=== PATIENT | female | born 1995 | race African-American/Black ===

== ENCOUNTER 2016-04-10 20:20 | Inpatient (IN) ==
[2016-04-10] MEDS ORDERED: Penicillin G Potassium 5,000,000 UNIT in D5% in Water (Mini-Bag+) 100 ML IVPB ONE (20:23)
[2016-04-10] MEDS ORDERED: Ringers Solution, Lactated 1,000 ML IVC SCH (20:30)
[2016-04-10] MEDS ORDERED: Ondansetron 4 MG/2 ML VIAL IVP PRN (20:31)
--- NOTE | 2016-04-10 20:44 | OB/GYN History & Physical ---
Date of Encounter: 04/10/16 Time of Encounter: 20:44 Assessment and Plan (1) Spontaneous onset of labor Current visit: Yes Status: Acute Patient presents reporting contractions with no fluid loss. TOCO shows contractions of 4-6min. Exam shows 5cm dilations with 90% effacement, baby is posterior. Will continue to monitor progression of labor. (2) History of group B Streptococcus (GBS) infection Current visit: Yes Status: Acute Patient has history of GBS+ on previous . Unknown GBS status on this status. Will start penicillin for antibiotic coverage. (3) Late care Current visit: Yes Status: Acute Patient has been follow at [facility] but reports late care. Will request records from [facility]. Unknown serology and GBS status with this . Will send labs. History of Present Illness Chief complaint: 38 weeks gestation with contractions and cramping HPI: Ms. Hanna is a 21 year old female at 38 week who presents today with contractions and cramping starting around 7am this morning. Patient reports that her contractions are currently 3-5min apart. She reports that she passed her mucus plug this morning but denies any fluid loss. Patient continues to report good movement. She reports that she has been "sick" for the last week with cough, congestion, runny nose, SOB, nausea/vomiting and diarrhea. She denies vaginal bleeding, headache, vision changes, changes in bladder function. Patient reports that she was getting pre- care at [facility] but she didn't start seeing them until later in the . She denies any complications or problems with blood sugar or blood pressure. Unknown serologies or GBS. On chart review, patient's previous delivery in May 2015 shows a report of GBS+, history of maternal chlamydia infection and report of meconium staining. Past Med Surg Social Fam HX - Past Medical History Medical history: no medical history Psychiatric history: no psych history - Past Surgical History Surgical History: other - Social History Smoking Status: Current some day smoker Smokeless Tobacco Status: No Alcohol use: none Drug use: none - Family History Mother Adopted: No Family Member Ethnicity: Non- Living Status: Still Living Hx Family Cardiac Disorders: No Hx Family Respiratory Disorders: No Hx Family Cancer: Yes (CERVICAL) Hx Family GI Disorders: No Hx Family Endocrine Disorder: No Hx Family Neuromuscular Disorders: No Hx Family Neurologic Disorders: No Hx Family HEENT Disorders: No Hx Family Autoimmune Disorders: No Obstetrical History - Pregnancies : 2 Para: 1 Term: 1 : 0 Ab's: 0 Livin - History/Complications History/Complications: hx of GBS+ with previous , hx of maternal chlamydia infectionand, hx of meconium staining Medications and Allergies Caplet 1 tab PO DAILY 04/21/15 [History] Allergies No Known Allergies Allergy (Verified 01/05/16 22:21) Review of System OB - Constitutional Constitutional ROS IM: fatigue, no fever(s) - Nose, mouth, and throat Nose, mouth and throat: nasal congestion, nasal discharge - Cardiovascular Cardiovascular: dyspnea, no chest pain, no edema - Respiratory Respiratory: cough, dyspnea, no wheezing - Gastrointestinal Gastrointestinal: diarrhea - Genitourinary Genitourinary: no urinary incontinence, no urinary urgency - Neurological Nerological: no confusion Exam - Constitutional Constitutional: well developed, well nourished, no acute distress, average body habitus - HEENT HEENT: Mucus Membranes Moist - Neck Neck exam: full ROM - Lungs Respiratory exam: CTAB - Cardiovascular Cardiovascular exam: RRR - Abdomen Abdomen: Present: bowel sounds normal, gravid - Cervix Dilation: 4 Effacement: 90 Results Result Diagrams: 04/10/16 21:25 All other labs normal. - Attending Attestation I examined this patient and my medical decision-making was reviewed with the CATHETERIZATION LABORATORY TECHNICIAN/PA/Advanced Practice Nurse/Resident Physician. I agree with the documented findings, disposition and treatment plan as described except to the extent set forth below.
[2016-04-10] MEDS ORDERED: Ringers Solution, Lactated 500 ML ONE (21:10)
[2016-04-10] MEDS ORDERED: *HR* Nalbuphine 20 MG/ML AMPUL IVP PRN (21:11)
[2016-04-10] MEDS ORDERED: *HR* FentaNYL (PF) 100 MCG/2 ML VIAL EP ONE (21:36)
[2016-04-10] MEDS ORDERED: Bupivacaine-MPF 0.25% 10 ML VIAL EP ONE (21:36)
--- NOTE | 2016-04-10 21:36 | OB Labor Progress Note ---
Date of Encounter: 04/10/16 Time of Encounter: 21:34 Labor Progress Note - Subjective Subjective: Penicillin dose started and running. Labs sent over from [facility] shows A+ blood type, rubella immune, Hep B and HIV non-reactive. Patient still having adequate contractions and desires epidural. - Cervix Cervix: 6-7cm 90% effacement posterior - Heart Tones Heart Tones: Category I heart tracings - Plan Plan: Patient would like an epidural at this time. Will continue to monitor progression of labor.
[2016-04-10 21:42] LABS: Hematocrit 30.4 % (35.3-44.9); Hemoglobin 9.7 g/dL (11.5-15.4); Mean Corpuscular HGB Conc 31.9 g/dL (31.6-35.5); Mean Corpuscular Hemoglobin 25.5 pg (28.0-33.3); Mean Platelet Volume 10.1 fL (9.4-12.4); Platelet Count 424 K/mcL (140-400); Red Cell Distribution Width 16.8 % (11.5-14.5)
[2016-04-10] MEDS ORDERED: Epidural Premix (fent/bupiv) 110 ML EP SCH (21:45)
[2016-04-10] MEDS ORDERED: Epidural Premix (fent/bupiv) 110 ML EP ONE (21:48)
[2016-04-10] MEDS ORDERED: Bupivacaine-MPF 0.25% 10 ML VIAL ONE (21:48)
[2016-04-10] MEDS ORDERED: *HR* FentaNYL (PF) 100 MCG/2 ML VIAL ONE (21:48)
--- NOTE | 2016-04-10 22:25 | Anesthesia Evaluation PreOp ---
Date of Encounter: 04/10/16 Time of Encounter: 21:35 - Past History Planned Operation: labor epidural Cardiac History: Denies any Significant Hx Pulmonary History: Smoker (few cigs per day) ROLL UP MACHINE OPERATOR History: Denies Any Significant HX Other Medical History: Denies Any Significant HX Anesthesia History: No Prior Anesthetic Complications, Past Anesthesia (T&A approx. 3 years ago.) : Yes Alcohol Use: none Drug use: none Medications and Allergies Caplet 1 tab PO DAILY 04/21/15 [History] Allergies No Known Allergies Allergy (Verified 01/05/16 22:21) - Meds/Allergy Pre-op Review Medications Reviewed: Yes Allergies Reviewed: Yes Beta Blockers on Current Med List: No Anesthesia Results - Labs 04/10/16 21:25 Anesthesia Exam vss Height: 5'5" Weight: 73 kg NPO (# of Hours): 4 Pain Scale: 10 Pain Scale Used: Numeric (1 - 10) - HEENT Pupil (Motor): Pupils equal, EOMI Mallampati: II Teeth: Normal Oral Opening: Greater than 3 - ROLL UP MACHINE OPERATOR LOC: Oriented ROLL UP MACHINE OPERATOR Motor: Normal RUE, Normal LUE, Normal RLE, Normal LLE, Normal Face ROLL UP MACHINE OPERATOR Sensory: Normal: RUE, LUE, RLE, LLE, Face - Cardiac Rhythm: Regular Murmur: None - Pulmonary Breath Sounds: bilateral Clear Respiratory Effort: Symmetrical Anesthesia Assess/Plan ASA Score: 2 Modified [place] Scale for Level of Consciousness: Cooperative, oriented, and tranquil Anesthetic Plan: Regional Monitoring Plan: Standard Monitors
--- NOTE | 2016-04-10 22:30 | Anesthesia Procedures ---
Date of Encounter: 04/10/16 Time of Encounter: 21:50 Procedures: Anesthesia - Epidural/Spinal Patient ID/Chart reviewed: Yes Patient examined: Yes OB Eval: Gestational age: 38 OB Eval: : 2 OB Eval: Hx Para: 1 OB Eval: Dilated at (cm): 7 OB Eval: Contractions: Non-stressed pattern Consent Obtained: Yes Supplemental Oxygen: None/Room Air Site Prep: Aseptic Technique, Sterile prep and drape, Povidone-Iodine 1% Patient position: upright Local Anesthetic: Lidocaine 1% Amount of Local Anesthetic used: 3 Touhy Needle Gauge: 18 Touhy Needle Depth (cm): 5 Catheter Depth at Skin (cm): 16 Test Dose (1.5% Lido + Epi): Volume given (mls): 3 Test Dose Result: Negative Loading Dose: 0.25% Marcaine (mls): 8 Loading Dose: Fentanyl (mcg): 100 Loading Dose Administered: Thru Catheter Infusion Med: 0.125% Bupivacaine w/ 2 mcg/ml Fentanyl Infusion Rate (mls/hr): [address]: Tegaderm, Tape Interspace Used: L3-L4 Loss of Resistance (LA): Yes Blood: No CSF: No Paresthesia: No Vitals + FHT's: 3 Vital Signs Time 2150 2155 2200 2205 2210 2215 2220 BP 124/69 136/88 143/92 137/89 136/96 133/84 138/72 Pulse 85 83 88 81 96 85 71 FHTs 120 130 120 130 130 120 120
--- NOTE | 2016-04-10 22:43 | OB Labor Progress Note ---
Date of Encounter: 04/10/16 Time of Encounter: 22:39 Labor Progress Note - Subjective Subjective: Patient comfortable post epidural - Vital Signs Vital Signs: Afebrile, vital signs stable - Cervix Cervix: 7/80/-1 w/ BBOW, vtx - Heart Tones Heart Tones: 120s baseline, CAT 1 - [place]: ctx q 2-3', spont - Interventions Interventions: 38 week IUP with spontaneous labor. care elsewhere. Unknown GBS. Anemia. Short interval. - Plan Plan: GBS prophylaxis. Amniotomy was then meconium-stained amniotic fluid seen. Anticipate vaginal delivery. Nursery and respiratory to be notified. records received from outside Facility and reviewed
[2016-04-10] MEDS ORDERED: Oxytocin 20 units/ LR 1000 mL 20 UNIT/1,000 ML BAG IVC ONE (23:39)
[2016-04-10] MEDS ORDERED: Penicillin G Potassium 2,500,000 UNIT in D5% in Water 100 ML IVPB STA (23:51)
--- NOTE | 2016-04-11 00:45 | OB/GYN Procedure Note ---
Delivery - Delivery Date: 04/11/16 Provider: Sherrell Meredith Intrapartum events: meconium Delivery induction: none Delivery augmentation: rupture of membranes Delivery monitor: external FHT, external uterine Anesthesia: epidural Estimated Blood Loss: 100 - Infant (s) Infant A Delivery Date: 04/11/16 Infant Delivery Time: 00:12 Presentation: vertex Position: SWETHA Route of delivery: vacuum extraction Gender: Female Viability: Viable Pounds: 6 Ounces: 14 at 1 minute: 9 at 5 mins: 9 Shoulder Dystocia: not encountered Placenta: spontaneous, uterine exploration Cord: nuchal cord (x2), 3 umbilical vessels, nuchal reduced - Repair Episiotomy: none Laceration Description: Periurethral - Complications Delivery complications: meconium, other (bradycardia) Delivery comments: The patient was complete and pushing with epidural anesthesia. As the fetus was +3, heart rate dropped to 60 rate. Oxygen was already in place by facemask. The patient gave verbal consent and a Kiwi vacuum was placed and with one contraction and one pull at 500 mmHg there was a vacuum-assisted vaginal delivery without pop offs of a vigorous female weighing 6 lbs. 14 oz. with Apgars of 9 at 1 minute and 9 at 5 minutes. There was a tight nuchal x2 which was reduced. Infant was bulb suctioned on the perineum. Cord was clamped and cut after pulsations ceased. Placenta was delivered spontaneous and intact with three-vessel cord confirmed. There were superficial periurethral lacerations which were hemostatic and not repaired. Estimated blood loss 100 mL, complications none. - Disposition Mom disposition: stable in LDR [place] disposition: stable in LDR
[2016-04-11] MEDS ORDERED: Acetaminophen 325 MG TABLET PO PRN (00:50)
[2016-04-11] MEDS ORDERED: Measles/Mumps/Rubella Vacc 0.5 ML VIAL SQ PRN (00:50)
[2016-04-11] MEDS ORDERED: Oxytocin 20 units/ LR 1000 mL 20 UNIT/1,000 ML BAG IVC ONE (00:50)
[2016-04-11] MEDS ORDERED: Oxytocin 20 units/ LR 1000 mL 20 UNIT/1,000 ML BAG IV SCH (00:50)
[2016-04-11] MEDS ORDERED: Ibuprofen 600 MG TABLET PO PRN (00:50)
[2016-04-11 05:12] LABS: HIV-1&2 Antibody & p24 Ag Nonreactive (Nonreactive); Hepatitis B Surface Antigen Nonreactive (Nonreactive)
[2016-04-11] MEDS: Prenatal Vit/FA 1 EACH TABLET PO SCH (08:23)
[2016-04-11] MEDS: GuaiFENesin Liq 200 MG/10 ML UDC PO PRN ×2 (10:20→22:03)
[2016-04-11] MEDS ORDERED: Ondansetron ODT 4 MG TAB.RAPDIS SL PRN (11:39)
[2016-04-12] MEDS: Prenatal Vit/FA 1 EACH TABLET PO SCH (09:57)
[2016-04-12 10:01] VITALS: BP 138/84
--- NOTE | 2016-04-12 10:33 | Discharge Summary ---
Date of Encounter: 04/12/16 Time of Encounter: 10:31 - Discharge Diagnosis (1) Vaginal delivery Priority: Primary Status: Resolved Comments: Pt meeting milestones. (2) Encounter for care or examination of lactating mother Priority: Secondary Status: Acute - Discharge Medications Prescriptions: Ibuprofen [Motrin] 600 mg PO Q6HR PRN #60 tablet PRN Reason: Cramping Docusate [Colace] 100 mg PO BID #60 capsule Home Medications: Caplet 1 tab PO DAILY 04/21/15 [History] Docusate [Colace] 100 mg PO BID #60 capsule 04/12/16 [Rx] Ibuprofen [Motrin] 600 mg PO Q6HR PRN #60 tablet 04/12/16 [Rx] Allergies/Adverse Reactions: Allergies No Known Allergies Allergy (Verified 01/05/16 22:21) Data Procedures and tests throughout hospitalization: Laboratory Tests 04/10/16 04/11/16 04/11/16 21:25 04:21 04:21 WBC 9.5 RBC 3.80 L Hgb 9.7 L Hct 30.4 L MCV 80.0 L MCH 25.5 L MCHC 31.9 RDW 16.8 H Plt Count 424 H MPV 10.1 Hep Bs Antigen Nonreactive HIV Ag/Ab Combo Qual Nonreactive Blood Type A POSITIVE Date of admission: 04/10/16 20:20 Primary care physician: Kole Weston CNP Consults: 04/11/16 00:50 Consult to Furnace Fitter [CONS] Routine Comment: Vaginal delivery, consult needed Consult to Aerospace Assembler [CONS] Routine Reason for SW Consult: Limited PNC elsewhere Discharging clinician: Toya Palomino Anticipated date of discharge: 04/12/16 - Patient Status Disposition: Home, Self-Care Condition: Good Functional capacity at discharge: independent ambulation Overall status at discharge: patient is progressing back to baseline - Discharge Instructions Follow Up With: Krystal Pagan CNM [Advanced Practice Nurse] - (May 10, 2016 @ 11:30 am) Kole Weston CNP [Primary Care Provider] - - Diet and Activity Activity: increase activity as tolerated Diet: advance to your usual diet Hospital Course Reason for admission: active labor Delivery: vacuum extraction Episiotomy: none Laceration: other (periurethral) complications: none Discharge diagnosis: IUP at term delivered [place] baby: female Hospital course: - Delivery Date: 04/11/16 Provider: Sherrell Meredith Intrapartum events: meconium Delivery induction: none Delivery augmentation: rupture of membranes Delivery monitor: external FHT, external uterine Anesthesia: epidural Estimated Blood Loss: 100 - (s) A Delivery Date: 04/11/16 Delivery Time: 00:12 Presentation: vertex Position: SWETHA Route of delivery: vacuum extraction Gender: Female Viability: Viable Pounds: 6 Ounces: 14 at 1 minute: 9 at 5 mins: 9 Shoulder Dystocia: not encountered Placenta: spontaneous, uterine exploration Cord: nuchal cord (x2), 3 umbilical vessels, nuchal reduced - Repair Episiotomy: none Laceration Description: Periurethral - Complications Delivery complications: meconium, other (bradycardia) - Disposition Mom disposition: home PPD#1 disposition: home with mother, Time Attestation: Total time spent providing and/or coordinating discharge services: Time Spent: Less than 30 minutes Exam - Constitutional Vitals: Temp Pulse Resp BP Pulse Ox 97.9 F 64 20 138/84 100 04/12/16 10:00 04/12/16 10:00 04/12/16 10:00 04/12/16 10:00 04/12/16 10:00 General appearance IM: A&O X 3, pleasant, no acute distress - Respiratory Respiratory exam: Present: CTAB - Cardiovascular Cardiovascular exam IM: Present: RRR, +S1, +S2 - GI/Abdominal GI/Abdominal exam IM: soft - Rectal Rectal exam: deferred - Uterine Tone: Firm Uterus Position: 2 Fingers Below Umbilicus - Extremities Exam Extremities exam IM: Present: normal inspection - Neurological Exam Neurological exam: normal gait, oriented X3 - Psychiatric Additional comments: reports good mood
[2016-04-12 11:00] LABS: Varicella Zoster IgG Antibody Positive
[2016-04-12 11:46] LABS: Rubella IgG Antibody POSITIVE (POSITIVE)
== END 2016-04-12 15:00 | disposition home or self-care (01) | DRG 560 ==
LOC: 1NENULAB → 1NENUOBS 04-11 03:40
PROVIDERS: ADMIT Obstetrics & Gynecology; ATTEND Obstetrics & Gynecology